=== PATIENT | male | born 1955 | race Caucasian/White ===

== ENCOUNTER → 2022-07-25 08:14 | Outpatient (BNVA) | payer MEDICARE, OTHER, SELFPAY | PROVIDERS: Visit Provider Family Medicine | DX: N39.0 Urinary tract infection, site not specified (principal); R30.0 Dysuria; R34 Anuria and oliguria; R39.9 Unspecified symptoms and signs involving the genitourinary system | CPT/HCPCS: 81003; 87077; 87086; 87184 ==

== ENCOUNTER 2022-07-28 10:14 | Outpatient (CLI) | payer MEDICARE, OTHER, SELFPAY | END 2022-07-28 10:15 | disposition home or self-care (01) | LOC: LAB 10:19 | PROVIDERS: Visit Provider Family Medicine | DX: N39.0 Urinary tract infection, site not specified (principal); R30.0 Dysuria; R34 Anuria and oliguria; Z22.322 Carrier or suspected carrier of Methicillin resistant Staphylococcus aureus | CPT/HCPCS: 87040 ==

== ENCOUNTER → 2023-06-22 08:48 | Outpatient (BNVA) | payer MEDICARE, OTHER, SELFPAY | PROVIDERS: Visit Provider Family Medicine | DX: M19.012 Primary osteoarthritis, left shoulder (principal); M25.512 Pain in left shoulder | CPT/HCPCS: 73030 ==

== ENCOUNTER → 2023-07-05 11:18 | Outpatient (BNVA) | payer MEDICARE, OTHER, SELFPAY | PROVIDERS: PCP Family Medicine; Visit Provider Family Medicine | DX: E03.9 Hypothyroidism, unspecified (principal); E11.9 Type 2 diabetes mellitus without complications; E55.9 Vitamin D deficiency, unspecified; E53.8 Deficiency of other specified B group vitamins; F17.219 Nicotine dependence, cigarettes, with unspecified nicotine-induced disorders; E56.9 Vitamin deficiency, unspecified; R91.1 Solitary pulmonary nodule; M25.512 Pain in left shoulder; E78.00 Pure hypercholesterolemia, unspecified; F17.201 Nicotine dependence, unspecified, in remission; Z12.2 Encounter for screening for malignant neoplasm of respiratory organs | CPT/HCPCS: 82306; 82607; 83036 ==

== ENCOUNTER 2023-07-18 09:38 | Outpatient (CLI) | payer MEDICARE, OTHER, SELFPAY ==
--- NOTE | 2023-07-18 10:15 | CT_ITS ---
WS: [id number] LDCT LUNG CANCER SCREENING TECHNIQUE: Noncontrast CT of the chest with coronal and sagittal reformatted images. CLINICAL INFORMATION: pulmonar nodule COMPARISON: None. DLP: 67.40 mGy.cm DIvol: Mean CTDIvol: 1.10 (mGy) All CT scans at [facility] use at least one of these dose optimization techniques: automat ed exposure control; mA and/or kV adjustment per patient size (includes targeted exams where dose is matched to clinical indication); or iterative reconstruction. FINDINGS: Elongated nodule RIGHT middle lobe measuring 7.8 mm. Noncalcified nodule RIGHT upper lobe m easuring 4 mm. Subpleural nodule RIGHT upper lobe measuring 6 mm. Nodule LEFT lower lobe anteriorly near the diaphragm measuring 5 mm. Ovoid nodule LEFT lower lobe lat erally measuring 6 mm. Normal caliber thoracic aorta. No mediastinal or hilar lymphadenopathy. Small esophageal hiatal herni a. Glands are normal. IMPRESSION: CT/CT lung screening [id number] LUNG-RADS: 2-Benign Appearance or Behavior FOLLOW UP: 12 Month: Continue annual screening with LDCT
== END 2023-07-18 09:39 | disposition home or self-care (01) ==
LOC: RAD 09:48
PROVIDERS: PCP Family Medicine; Visit Provider Family Medicine
DX: Z12.2 Encounter for screening for malignant neoplasm of respiratory organs (principal); R91.1 Solitary pulmonary nodule; F17.219 Nicotine dependence, cigarettes, with unspecified nicotine-induced disorders
CPT/HCPCS: 71271

== ENCOUNTER → 2023-10-10 14:44 | Outpatient (BNVA) | payer MEDICARE, OTHER, SELFPAY | PROVIDERS: PCP Family Medicine; Visit Provider Family Medicine | DX: R09.82 Postnasal drip (principal); E11.9 Type 2 diabetes mellitus without complications; E03.9 Hypothyroidism, unspecified; E78.00 Pure hypercholesterolemia, unspecified; F17.201 Nicotine dependence, unspecified, in remission; Z79.899 Other long term (current) drug therapy | CPT/HCPCS: 80053; 83036; 84439; 84443 ==

== ENCOUNTER → 2023-12-19 14:56 | Outpatient (BNVA) | payer MEDICARE, OTHER, SELFPAY | PROVIDERS: PCP Family Medicine; Visit Provider Podiatrist Foot & Ankle Surgery | DX: L60.0 Ingrowing nail (principal); E11.69 Type 2 diabetes mellitus with other specified complication; Z79.4 Long term (current) use of insulin | CPT/HCPCS: 11750; 99203; A6219 ==

== ENCOUNTER → 2024-01-02 14:10 | Outpatient (BNVA) | payer MEDICARE, SELFPAY | PROVIDERS: PCP Family Medicine; Visit Provider Podiatrist Foot & Ankle Surgery | DX: L60.0 Ingrowing nail (principal); E11.9 Type 2 diabetes mellitus without complications; Z79.4 Long term (current) use of insulin | CPT/HCPCS: 99213 ==

== ENCOUNTER → 2024-01-25 14:46 | Outpatient (BNVA) | payer MEDICARE, OTHER, SELFPAY | PROVIDERS: PCP Family Medicine; Visit Provider Family Medicine | DX: E11.9 Type 2 diabetes mellitus without complications (principal); E03.9 Hypothyroidism, unspecified; L60.0 Ingrowing nail | CPT/HCPCS: 80053; 83036; 84443 ==

== ENCOUNTER → 2024-02-13 15:33 | Outpatient (BNVA) | payer MEDICARE, SELFPAY | PROVIDERS: PCP Family Medicine; Visit Provider Podiatrist Foot & Ankle Surgery | DX: L60.0 Ingrowing nail (principal); E11.69 Type 2 diabetes mellitus with other specified complication; Z79.4 Long term (current) use of insulin | CPT/HCPCS: 11750 ==

== ENCOUNTER 2025-03-24 21:20 | Emergency (ER) | payer MEDICARE, OTHER, SELFPAY ==
[2025-03-24 21:31] VITALS: BP 149/78; PULSE 75; RESP 18; TEMP 36.7; O2SAT 96; BMI 23.1
[2025-03-24 21:42] LABS: Glucose Point of Care 234 mg/dL (70-110)
[2025-03-24 22:01] LABS: Basophils % 0.5 %; Eosinophils # 0.1 10^3/uL (0.0-0.8); Eosinophils % 1.5 %; Hematocrit 40.2 % (37-53); Lymphocytes # 1.1 10^3/uL (0.8-4.8); Lymphocytes % 12.9 %; Mean Corpuscular HGB Conc 31.1 g/dL (30-55); Mean Corpuscular Hemoglobin 25.6 pg (27-33); Mean Corpuscular Volume 82.2 fl (82-101); Mean Platelet Volume 10.2 fL (7.4-10.4); Monocytes # 0.8 10^3/uL (0.2-0.9); Monocytes % 8.7 %; Neutrophils # 6.51 10^3/uL (1.8-7.7); Neutrophils % 75.9 %; Nucleated Red Blood Cells % 0 %; Platelet Count 196 10^3/cmm (157-399); Red Blood Count 4.89 10^6/uL (3.85-5.65); Red Cell Distribution Width 14.6 % (12.1-15.1); White Blood Count 8.58 10^3/uL (3.29-11.43)
[2025-03-24 22:24] LABS: Alanine Aminotransferase 15 U/L (0-41); Albumin Level 3.8 g/dL (3.5-5.2); Alkaline Phosphatase 95 U/L (40-130); Anion Gap 13.6 (5-19); Aspartate Amino Transferase 20 U/L (0-40); Blood Urea Nitrogen 20 mg/dL (8-23); Calcium 8.8 mg/dL (8.5-10.5); Carbon Dioxide 25 mmol/L (22-29); Chloride 104 mmol/L (98-107); Creatinine Clr Calc Pharmacy 99.6145; Glomerular Filtration Rate 96.1 mL/min (90-130); Glucose 242 mg/dL (65-115); Osmolality Calculated 299 mOsm/kg (285-295); Potassium 3.6 mmol/L (3.5-5.1); Sodium 139 mmol/L (136-145); Total Bilirubin 0.4 mg/dL (0.15-1.2); Total Protein 6.8 g/dL (6.6-8.7)
--- NOTE | 2025-03-24 23:37 | W.ED.RECABL ---
HPI - Recheck/Abnormal Lab/Rx General: Chief Complaint: Recheck/Abnormal Lab/Rx Stated Complaint: Blood Sugar Low Time Seen by Provider: 03/24/25 23:15 History of Present Illness: Patient is a 69yo male with history of diabetes who presents to the ED after experiencing a severe hypoglycemic episode. Patient reports his blood glucose was measured at 27 mg/dL at approximately 05:30-06:00 this evening. He immediately consumed apple juice to correct the hypoglycemia, and his blood glucose subsequently increased to 150 mg/dL. However, unlike his typical recovery from hypoglycemic episodes which usually resolves within 30 minutes, the patient continued to experience persistent symptoms including visual disturbances, achiness, and cognitive difficulties ( trouble with my thinking ) for a prolonged period. The patient reports that his blood glucose continued to rise after arrival to the ED, measuring 250 mg/dL. He denies any precipitating factors for the hypoglycemic event, stating he had eaten probably a little bit more than I normally eat today and denies taking excess insulin. He describes himself as a real diabetic with labile blood glucose levels, typically ranging from 150-200 mg/dL during the day but sometimes dropping into the 40s around 2:00 AM. The patient reports increased physical activity recently with yard work during the summer months, which may be contributing to lower blood glucose levels. He denies any recent illness, cough, congestion, or fevers. Related Data Home Medications ?Medication ?Instructions ?Recorded ?Confirmed magnesium 250 mg tablet 250 mg PO DAILY 06/22/23 02/13/24 cyclobenzaprine 10 mg tablet 10 mg PO BID PRN 07/05/23 02/13/24 dextromethorphan-guaifenesin 5 20 ml PO Q8H PRN 10/10/23 02/13/24 mg-100 mg/5 mL oral liquid (Child Robitussin Cough-Chest DM) insulin glargine 100 unit/mL (3 See Rx Instructions SUBCUT BID 01/25/24 02/13/24 mL) subcutaneous pen (Lantus Solostar U-100 Insulin) Previous Rx's ?Medication ?Instructions ?Recorded aspirin 81 mg tablet,delayed 81 mg PO DAILY #90 tabs 10/10/23 release (Adult Aspirin Regimen) atorvastatin 20 mg tablet 20 mg PO DAILY #90 tabs 10/10/23 blood sugar diagnostic (Blood #200 ea 12/13/23 Glucose Test strips) sulfamethoxazole 800 1 tab PO BID 10 days #20 tabs 12/13/23 mg-trimethoprim 160 mg tablet (Bactrim DS) fluticasone propionate 50 2 spray intranasal DAILY #16 grams 12/21/23 mcg/actuation nasal spray,suspension (Flonase Allergy Relief) insulin aspart U-100 100 unit/mL 5 unit (0.05 mL) SUBCUT QID #60 mL 01/05/24 (3 mL) subcutaneous pen pen needle, diabetic 31 gauge x #1,200 ea 01/25/24 5/16 (Pen Needle) levothyroxine 75 mcg tablet 75 mcg PO DAILY #90 tabs 01/29/24 cephalexin 500 mg tablet 500 mg PO TID #21 tabs 02/13/24 meloxicam 15 mg tablet 15 mg PO DAILY #30 tabs 08/26/24 Allergies Allergy/AdvReac Type Severity Reaction Status Date / Time No Known Allergies Allergy Verified 02/13/24 15:37 PFSH ED PFSH: Medical History Hypothyroidism Diabetes Hypercholesteremia Bulging discs l4, l5, s1 Surgical History History of vasectomy x2 Family History Brother Cancer Melanoma Brother Cancer Pancreatic and liver Sister Cancer Breast Mother Cancer breast Brother Cancer prostate Father Cancer Prostate Other CAD (coronary artery disease) Dementia Diabetes Hyperlipidemia Hypertension Denies family history of Clotting disorder Psychiatric illness Chronic kidney disease (CKD) Anesthesia complication Bleeding disorder Lung disease Stroke Social History Smoking and tobacco/nicotine status: former use of tobacco/nicotine Alcohol intake: current Alcohol intake frequency: few times a month Substance/Drug Use: never Lives independently: Yes Marital status: Current occupational status: retired Special chas needs: No Agree to transfusion: Yes Course Vital Signs: Vital signs: Vital Signs Temperature 98.0 F 03/24/25 21:31 Pulse Rate 75 03/24/25 21:31 Respiratory Rate 18 03/24/25 21:31 Blood Pressure 149/78 03/24/25 21:31 Pulse Oximetry 96 03/24/25 21:31 Oxygen Delivery Me thod Room Air 03/24/25 21:31 MDM - Recheck/Abnormal Lab/Rx Medical Decision Making ROS: Constitutional: Positive for diaphoresis during hypoglycemic episode. Denies fever. HEENT: Positive for visual disturbances during and after hypoglycemic episode, now improved. Neurological: Positive for cognitive difficulties during and after hypoglycemic episode, now improved. Cardiovascular: Denies chest pain or palpitations. Respiratory: Denies cough or congestion. Gastrointestinal: Denies nausea, vomiting, or abdominal pain. Musculoskeletal: Reports generalized achiness during and after hypoglycemic episode. All other systems reviewed and negative. MEDICATIONS AND ALLERGIES: Medications: - Lantus: 21 units in the evening, 11 units in the morning - NovoLo units at mealtime on a sliding scale Allergies: None reported PAST HISTORICAL DATA: PMH: Diabetes mellitus with recent HbA1c of 8.7% (down from 9.1%) PSH: None reported Social History: Former smoker, quit 2 years ago. Reports increased physical activity with yard work during summer months. PHYSICAL EXAM: General: Well-appearing, in no acute distress. HEENT: Head normocephalic and atraumatic. Mucous membranes moist. Neck: Supple. Respiratory: No increased work of breathing. Lungs are clear. Cardiac: Regular rate and rhythm, 2+ pulses in all extremities. Abdomen: Soft, non-distended, no rebound or guarding. Extremities: No clubbing, cyanosis, or edema. Neuro: Awake, alert, and oriented. Speech is fluent. No focal motor or sensory deficits noted. INITIAL IMPRESSION AND PLAN: Given the history and presentation, the primary working diagnosis is hypoglycemia with prolonged recovery period. Additional considerations include possible rebound hyperglycemia and labile diabetes. Based on this initial impression I will order basic laboratory studies including CBC and comprehensive metabolic panel to evaluate for any underlying metabolic abnormalities, and to confirm current blood glucose level. Will provide supportive care and monitor patient's symptoms for resolution. TEST INTERPRETATIONS: CBC: - WBC: 8.58 (normal) - Hemoglobin: 12.5 (normal) - Hematocrit: 40.2 (normal) - Platelets: 196 (normal) Chemistry Panel: - Sodium: 139 (normal) - Potassium: 3.6 (normal) - Chloride: 104 (normal) - Bicarbonate: 25 (normal) - BUN: 20 (normal) - Creatinine: 0.8 (normal) - Glucose: 242 (elevated) - No anion gap Liver Function Tests: Normal PROCEDURES: None performed. CONSIDERED BUT NOT PERFORMED: Additional insulin therapy CONSIDERED but NOT DONE due to patient's current hyperglycemia being a rebound effect from prior hypoglycemic episode and risk of causing recurrent hypoglycemia, especially given patient's history of labile blood glucose levels. FINAL IMPRESSION: Based on all the above, my clinical impression is most compatible with hypoglycemia with prolonged recovery period, followed by rebound hyperglycemia. The clinical picture is not currently suggestive of diabetic ketoacidosis, hyperosmolar hyperglycemic state, or acute infection. Although other conditions were also considered, they were deemed unlikely based on the clinical information available. CLINICAL DISPOSITION: The patient's current condition is stable in my estimation and the most appropriate and indicated disposition at this time is discharge home with continued diabetes management. The patient is safe for discharge home as he has fully recovered from his hypoglycemic episode with resolution of all symptoms. His laboratory studies are unremarkable aside from the expected hyperglycemia following treatment of hypoglycemia. He has a good understanding of his diabetes management and has appropriate supplies at home to monitor and treat his blood glucose levels. The patient reports he keeps juice and candy by his bedside for nocturnal hypoglycemic episodes, demonstrating appropriate self-management strategies. RISK STRATIFICATION AND CLINICAL DECISION RULES APPLIED: No formal clinical decision rules were applied in this case. Risk assessment was based on clinical judgment, considering the patient's history of diabetes with labile blood glucose levels, complete resolution of symptoms, normal laboratory values aside from hyperglycemia, and the patient's demonstrated ability to self-manage his condition. CASE SUMMARY: Patient is a male with diabetes who presented to the ED after experiencing a severe hypoglycemic episode with blood glucose of 27 mg/dL. Despite consuming apple juice and raising his glucose to 150 mg/dL, he experienced prolonged symptoms including visual disturbances and cognitive difficulties, which was unusual compared to his typical recovery pattern. The patient has labile diabetes with a recent HbA1c of 8.7% and reports increased physical activity recently with yard work, which may have contributed to the hypoglycemic event. In the ED, the patient's blood glucose was 242 mg/dL, representing rebound hyperglycemia. Laboratory studies were otherwise normal. The patient's symptoms had resolved by the time of examination, and he was clinically stable. Given the resolution of symptoms and normal laboratory values, the patient was discharged home with instructions to continue his usual diabetes medications, including Lantus and NovoLog as prescribed. He was advised to monitor his blood glucose closely, especially given his recent increased physical activity, and to ensure adequate carbohydrate intake with exercise. The patient demonstrated good understanding of his condition and appropriate self-management strategies, including keeping fast-acting carbohydrates at his bedside for nocturnal hypoglycemia. Lab Data I reviewed the patient's lab results. 03/24/25 21:54 03/24/25 21:54 Laboratory Results WBC 8.58 10^3/uL (3.29-11.43) 03/24/25 21:54 RBC 4.89 10^6/uL (3.85-5.65) 03/24/25 21:54 Hgb 12.50 g/dL (11.27-16.99) 03/24/25 21:54 Hct 40.2 % (37-53) 03/24/25 21:54 MCV 82.2 fl (82-101) 03/24/25 21:54 MCH 25.6 pg (27-33) L 03/24/25 21:54 MCHC 31.1 g/dL (30-55) 03/24/25 21:54 RDW 14.6 % (12.1-15.1) 03/24/25 21:54 Plt Count 196 10^3/cmm (157-399) 03/24/25 21:54 MPV 10.2 fL (7.4-10.4) 03/24/25 21:54 Neut % (Auto) 75.9 % 03/24/25 21:54 Lymph % (Auto) 12.9 % 03/24/25 21:54 [place] % (Auto) 8.7 % 03/24/25 21:54 Eos % (Auto) 1.5 % 03/24/25 21:54 Baso % (Auto) 0.5 % 03/24/25 21:54 Neut # (Auto) 6.51 10^3/uL (1.8-7.7) 03/24/25 21:54 Lymph # (Auto) 1.1 10^3/uL (0.8-4.8) 03/24/25 21:54 [place] # (Auto) 0.8 10^3/uL (0.2-0.9) 03/24/25 21:54 Eos # (Auto) 0.1 10^3/uL (0.0-0.8) 03/24/25 21:54 Baso # (Auto) 0.0 10^3/uL (0.0-0.1) 03/24/25 21:54 Nucleated RBC % (auto) 0 % 03/24/25 21:54 Nucleated RBCs # 0.0 /100WBC 03/24/25 21:54 Sodium 139 mmol/L (136-145) 03/24/25 21:54 Potassium 3.6 mmol/L (3.5-5.1) 03/24/25 21:54 Chloride 104 mmol/L (98-107) 03/24/25 21:54 Carbon Dioxide 25 mmol/L (22-29) 03/24/25 21:54 Anion Gap 13.6 (5-19) 03/24/25 21:54 BUN 20 mg/dL (8-23) 03/24/25 21:54 Creatinine 0.8 mg/dL (0.7-1.2) 03/24/25 21:54 GFR Calculation 96.1 mL/min (90-130) 03/24/25 21:54 Glucose 242 mg/dL (65-115) H 03/24/25 21:54 POC Glucose 234 mg/dL (70-110) H 03/24/25 21:35 Calculated Osmolality 299 mOsm/kg (285-295) H 03/24/25 21:54 Calcium 8.8 mg/dL (8.5-10.5) 03/24/25 21:54 Total Bilirubin 0.4 mg/dL (0.15-1.2) 03/24/25 21:54 AST 20 U/L (0-40) 03/24/25 21:54 ALT 15 U/L (0-41) 03/24/25 21:54 Alkaline Phosphatase 95 U/L (40-130) 03/24/25 21:54 Total Protein 6.8 g/dL (6.6-8.7) 03/24/25 21:54 Albumin 3.8 g/dL (3.5-5.2) 03/24/25 21:54 Globulin 3.0 g/dL (1.3-4.6) 03/24/25 21:54 No radiology studies performed this visit Discharge Plan Discharge Patient Disposition: Home Clinical Impression: Diabetes, Hypoglycemia associated with diabetes Condition: Stable Prescriptions: No Action magnesium 250 mg tablet 250 mg PO DAILY cyclobenzaprine 10 mg tablet 10 mg PO BID PRN Chld Robitussin Cough-Chest DM 5-100 mg/5 mL liquid 20 ml PO Q8H PRN aspirin [Adult Aspirin Regimen] 81 mg tablet,delayed release (DR/EC) 81 mg PO DAILY Qty: 90 2RF atorvastatin 20 mg tablet 20 mg PO DAILY Qty: 90 2RF cephalexin 500 mg tablet 500 mg PO TID Qty: 21 0RF sulfamethoxazole-trimethoprim [Bactrim DS] 800-160 mg tablet 1 tab PO BID 10 Days Qty: 20 0RF (DME) Blood Glucose Test Strip See Rx Instructions .MEDSUPPLY Qty: 200 12RF Rx Instructions: Use as directed with glucometer to check blood sugar (DME) pen needle, diabetic [Pen Needle] 31 gauge x 5/16 needle See Rx Instructions .MEDSUPPLY Qty: 1200 12RF Rx Instructions: Use as directed for insulin administration insulin glargine [Lantus Solostar U-100 Insulin] 100 unit/mL (3 mL) insulin pen See Rx Instructions SUBCUT BID Rx Instructions: 10u q AM, 20u qPM subcutaneously twice a day; fluticasone propionate [Flonase Allergy Relief] 50 mcg/actuation spray,suspension 2 spray intranasal DAILY Qty: 16 0RF Rx Instructions: administer into each nostril insulin aspart U-100 100 unit/mL (3 mL) insulin pen 5 unit SUBCUT QID Qty: 60 6RF levothyroxine 75 mcg tablet 75 mcg PO DAILY Qty: 90 2RF meloxicam 15 mg tablet 15 mg PO DAILY Qty: 30 0RF Discharge Orders: Discharge ED (Routine); Ordered 03/24/25 Ordered By: Kirt Gutierrez Referrals: Mary Oconnell DO [Primary Care Provider] Discharge Diet: Diabetic Discharge Activity: Increase activity as tolerated Patient Instructions: Hypoglycemia, Opioid Safety, Pain Management Activity Restrictions/Additional Instructions: DISCHARGE INSTRUCTIONS: Diagnosis: Hypoglycemia with prolonged recovery Instructions: 1. Continue your usual diabetes medications (Lantus and NovoLog) as prescribed. 2. Monitor your blood glucose levels closely, especially before and after physical activity. 3. Consider reducing your insulin dose or increasing carbohydrate intake before planned physical activity such as yard work. 4. Continue to keep fast-acting carbohydrates (juice, candy) readily available, especially at bedside for nocturnal hypoglycemia. 5. Consider discussing with your primary care provider about adjusting your insulin regimen to better manage your labile blood glucose levels. 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
[2025-03-24 23:50] VITALS: BP 147/85; PULSE 68; RESP 17; O2SAT 100
== END 2025-03-24 23:52 | disposition home or self-care (01) ==
PROVIDERS: Emergency Medicine; Emergency Provider Student in an Organized Health Care Education/Training Program; PCP Family Medicine
DX: E11.649 Type 2 diabetes mellitus with hypoglycemia without coma (principal); Z79.82 Long term (current) use of aspirin; Z79.4 Long term (current) use of insulin; Z87.891 Personal history of nicotine dependence
CPT/HCPCS: 36415; 36416; 80053; 82962; 85025; 99283